=== PATIENT | male | born 2000 | race Caucasian/White ===

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

== ENCOUNTER 2019-04-02 11:08 | Emergency (ER) | payer MEDICAID ==
[~2019-04-02] VITALS: Ht 170.2 cm; Wt 61.6 kg
[2019-04-02 11:16] VITALS: BP 120/78
== END 2019-04-02 12:04 | disposition home or self-care (01) ==
LOC: ED 11:40
DX: L01.01 Non-bullous impetigo (principal); F12.10 Cannabis abuse, uncomplicated; F17.200 Nicotine dependence, unspecified, uncomplicated
CPT/HCPCS: 99283

== ENCOUNTER 2020-03-27 19:18 | Emergency (ER) | payer MEDICAID ==
[~2020-03-27] VITALS: Ht 170.2 cm; Wt 65.7 kg
[2020-03-27 19:31] VITALS: BP 125/75
[2020-03-27] MEDS ORDERED: ACETAMINOPHEN 500 MG TABLET ONE (19:45)
[2020-03-27] MEDS ORDERED: ACETAMINOPHEN 500 MG TABLET PO ONE (20:00)
== END 2020-03-27 19:50 | disposition home or self-care (01) ==
LOC: ED 19:30
DX: K04.7 Periapical abscess without sinus (principal); K02.9 Dental caries, unspecified; R00.0 Tachycardia, unspecified
CPT/HCPCS: 99283

== ENCOUNTER 2020-03-28 09:43 | Emergency (ER) | payer MEDICAID ==
[~2020-03-28] VITALS: Ht 170.2 cm; Wt 64.0 kg
[2020-03-28] MEDS ORDERED: ACETAMINOPHEN 500 MG TABLET ONE (10:23)
--- NOTE | 2020-03-28 10:26 | NUR ---
PT PRESENTED TO ED D/T DENTAL PAIN X "COUPLE WEEKS."
[2020-03-28] MEDS ORDERED: SODIUM CHLORIDE 0.9% 1,000ML IVBOLUS ONE (10:30)
[2020-03-28] MEDS ORDERED: ACETAMINOPHEN 500 MG TABLET PO ONE (10:30)
[2020-03-28] MEDS ORDERED: ONDANSETRON 2MG/ML, 2ML ONE (10:47)
--- NOTE | 2020-03-28 10:49 | NUR ---
PT MEDICATED FOR NAUSEA. STATES PAIN ~4/10 AT THIS TIME. DENIES NEED FOR PAIN MEDICATION. RN INFORMED PT IF PAIN INCREASES TO LET RN KNOW. PT VERBALIZED UNDERSTANDING.
--- NOTE | 2020-03-28 10:53 | NUR ---
LABS OBTAINED AND PROVIDED TO LAB. LAB VERIFIED THAT FIRST SET OF BLOOD CULTURES DRAWN BY RN WERE OKAY. LAB STATED FIRST SET IS OKAY AND WILL ACCEPT.
[2020-03-28] MEDS ORDERED: ONDANSETRON 2MG/ML, 2ML IVPush ONE (11:00)
[2020-03-28] MEDS ORDERED: morphine SULFATE 10 MG/ML, 1ML IVPush ONE (11:00)
[2020-03-28 11:02] LABS: MEAN CORPUSCULAR HEMOGLOBIN 29.7 pg (27.5-34.5); MEAN CORPUSCULAR HGB CONC 34.2 g/dL (33.2-36.2); MEAN PLATELET VOLUME 7.3 fL (7.4-10.4); PLATELET COUNT 246 x10^3/uL (130-400); RED BLOOD COUNT 4.79 x10^6/uL (4.38-5.82); RED CELL DISTRIBUTION WIDTH 13.2 % (9.4-14.8)
[2020-03-28 11:10] LABS: ALANINE AMINOTRANSFERASE 20 U/L (12-78); ALBUMIN 3.9 g/dL (3.4-5.0); ANION GAP 9 mmol/L (5-15); CALCIUM 8.8 mg/dL (8.5-10.1); CHLORIDE 92 mmol/L (98-107); CREATININE 1.17 mg/dL (0.7-1.3)
[2020-03-28 11:13] LABS: ALKALINE PHOSPHATASE 79 U/L (45-117); BILIRUBIN,TOTAL 0.6 mg/dL (0.2-1.0)
--- NOTE | 2020-03-28 11:14 | NUR ---
RN STARTED SEPSIS FLOW SHEET WORKSHEET. PENDING RESULTS.
--- NOTE | 2020-03-28 11:17 | NUR ---
RN REASSESSED PT'S TEMPERATURE AFTER ADMINISTRATION OF TYLENOL PER EMAR. PT CURRENT TEMP 100.1. PT LYING ON GURNEY WITH EYES CLOSED. NO OTHER NEEDS AT THIS TIME.
[2020-03-28 11:20] LABS: MICROSCOPIC AUTO
--- NOTE | 2020-03-28 11:23 | NUR ---
RN DISCUSSED WITH PA MARÍA SEPSIS FLOW SHEET. PT NOT MEETING CRITERIA AT THIS TIME BUT RN AND PA TO CONTINUE TO MONITOR.
[2020-03-28 11:32] LABS: MD YES
[2020-03-28 11:33] LABS: BAND#(MANUAL) 4.25 x10^3/uL; BANDS%(MANUAL) 22 % (0-7); LYMPH#(MANUAL) 0.97 x10^3/uL (1-6.1); LYMPHS% (MANUAL) 5 % (22-44); MONOS#(MANUAL) 1.16 x10^3/uL (0.3-2.7); MONOS% (MANUAL) 6 % (2-9); REACTIVE LYMPHS # (MANUAL) 0.19 x10^3/uL (0-0); REACTIVE LYMPHS % (MANUAL) 1 % (0-0); SEG#(MANUAL) 12.74 x10^3/uL (1.8-8); SEGS% (MANUAL) 66 % (42-75)
[2020-03-28 11:35] LABS: <PLATELET ESTIMATE> ADEQUATE; <PLT MORPHOLOGY> NORMAL PLT MORPH; <RBC MORPHOLOGY> NORMAL
--- NOTE | 2020-03-28 11:40 | NUR ---
PT IN CT SCAN.
[2020-03-28] MEDS ORDERED: OMNIPAQUE 350 MG/ML, 100ML BOTTLE ONE (11:48)
--- NOTE | 2020-03-28 11:54 | NUR ---
RN ANSWERED PT'S CALL LIGHT. PT STATING NEEDS TO VOID. RN UNHOOKED PT FROM MONITOR. PT AMBULATED TO RESTROOM WITH A STEADY GAIT.
[2020-03-28] MEDS ORDERED: MORPHINE SULFATE 4 MG/ML, 1ML ONE (11:58)
[2020-03-28 11:59] VITALS: BP 117/63
--- NOTE | 2020-03-28 12:01 | NUR ---
PT MEDICATED FOR 4/10 DENTAL AND HEAD PAIN.
--- NOTE | 2020-03-28 12:21 | NUR ---
PA WOULD LIKE RN TO HOLD OFF ON ORDERING PT FOOD. PER PA PT TBAD.
[2020-03-28] MEDS ORDERED: AMPICILLIN/SULBACTAM 3 GM in SODIUM CHLORIDE 0.9% 100 ML IV ONE (12:30)
--- NOTE | 2020-03-28 12:33 | NUR ---
2/2 BLOOD CULTURES DRAWN. ABX BEING ADMINISTERED PER EMAR. PT UPDATED ON POC.
== END 2020-03-28 13:33 | disposition home or self-care (01) ==
LOC: ED 11:14
DX: K08.89 Other specified disorders of teeth and supporting structures (principal); R00.0 Tachycardia, unspecified; F15.10 Other stimulant abuse, uncomplicated; J02.0 Streptococcal pharyngitis; M54.2 Cervicalgia
CPT/HCPCS: 36415; 70491; 71045; 80053; 81001; 83605; 84145; 85025; 87040; 87880; 93005; 96361; 96365; 96375; 99285; J0295; J2270; J2405; J7030; Q9967